=== PATIENT | male | born 1980 | race African-American/Black ===

== ENCOUNTER 2017-09-02 15:55 | Inpatient (IN) | payer SELFPAY ==
[~2017-09-02] VITALS: Ht 182.9 cm; Wt 84.0 kg
[2017-09-02] VITALS (22 sets, daily range): BP systolic 120–160; BP diastolic 72–104; PULSE 119–156; RESP 15–29; TEMP 99.1; O2SAT 100
[2017-09-02] MEDS ORDERED: PROPOFOL 1000 MG/100 ML INJ 100 ML ONE (16:04)
[2017-09-02] MEDS ORDERED: SODIUM CHLOR 0.9% 1000 ML INJ 1,000 ML IV SCH (16:05)
[2017-09-02] MEDS: PROPOFOL 1000 MG/100 ML INJ 100 ML IV PRN (16:05)
[2017-09-02] MEDS ORDERED: SUCCINYLCHOLINE CHLORIDE 100 MG/5 ML SYRINGE IV PUSH ONE (16:15)
[2017-09-02] MEDS ORDERED: SODIUM CHLORIDE 0.9% FLUSH 10 ML FLUSH IV FLUSH PRN (16:15)
[2017-09-02] MEDS ORDERED: ETOMIDATE 20 MG/10 ML VIAL IV PUSH ONE (16:15)
[2017-09-02 16:40] LABS: AUTOMATED NEUTROPHIL # 3.4 TH/MM3 (1.8-7.7); BASOPHIL % 0.6 % (0.0-2.0); EOSINOPHIL % 0.4 % (0.0-4.0); HEMATOCRIT 36.5 % (39.0-51.0); HEMOGLOBIN 12.3 GM/DL (13.0-17.0); LYMPH % 41.9 % (9.0-44.0); LYMPHOCYTE # 2.8 TH/MM3 (1.0-4.8); MEAN CELL VOLUME 85.2 FL (80.0-100.0); MEAN CORPUSCULAR HEMOGLOBIN 28.7 PG (27.0-34.0); MEAN CORPUSCULAR HGB CONC 33.7 % (32.0-36.0); MEAN PLATELET VOLUME 7.3 FL (7.0-11.0); MONO % 5.4 % (0.0-8.0); MONOCYTE # 0.4 TH/MM3 (0-0.9); NEUT % 51.7 % (16.0-70.0); PLATELET COUNT 252 TH/MM3 (150-450); RED BLOOD COUNT 4.28 MIL/MM3 (4.50-5.90); WHITE BLOOD COUNT 6.6 TH/MM3 (4.0-11.0)
--- NOTE | 2017-09-02 16:41 | RADRPT ---
EXAM DATE/TIME: 09/02/2017 16:13 [facility] COMPARISON: No previous studies available for comparison. INDICATIONS : Evaluate ET tube placement. MEDICAL HISTORY : Unobtainable SURGICAL HISTORY : Unobtainable ENCOUNTER: Initial ACUITY: 1 day PAIN SCORE: Non-responsive. LOCATION: Bilateral chest FINDINGS: A single view of the chest demonstrates the lungs to be symmetrically aerated without evidence of mas s, infiltrate or effusion. The cardiomediastinal contours are unremarkable. Osseous structures are intact. ET tube tip well above the ale. Gastric tube tip and side-port project within the stomach. CONCLUSION: 1. ET tube in good position. 2. The lungs are clear. Ruben Caraballo MD on September 02, 2017 at 16:39 Board Certified Radiologist. This report was verified electronically.
[2017-09-02 16:55] LABS: INTERNATIONAL NORMALIZED RATIO 1.1 RATIO
[2017-09-02 16:56] LABS: BILIRUBIN, URINE NEG (NEG); BLOOD, URINE NEG (NEG); GLUCOSE,URINE NEG (NEG); HYALINE CAST, URINE 1 /lpf (RARE); KETONE, URINE NEG (NEG); MUCUS URINE FEW /lpf (OCC); NITRITE,URINE NEG (NEG); PH, URINE 5.5 (5.0-8.5); URINE COLOR YELLOW (YELLW/STRAW); URINE LEUKOCYTE ESTERASE NEG (NEG)
--- NOTE | 2017-09-02 17:07 | RADRPT ---
EXAM DATE/TIME: 09/02/2017 16:28 [facility] COMPARISON: No previous studies available for comparison. INDICATIONS : Altered mental status. Unresponsive. RADIATION DOSE: 56.35 CTDIvol (mGy) MEDICAL HISTORY : Non-responsive. SURGICAL HISTORY : Non-responsive. ENCOUNTER: Initial ACUITY: 1 day PAIN SCALE: Non-responsive LOCATION: cranial TECHNIQUE: Multiple contiguous axial images were obtained of the head. Using automated exposure control and adj ustment of the mA and/or kV according to patient size, radiation dose was kept as low as reasonably a chievable to obtain optimal diagnostic quality images. DICOM format image data is available electro nically for review and comparison. FINDINGS: CEREBRUM: The ventricles are normal for age. No evidence of midline shift, mass lesion, hemorrhage or acute in farction. No extra-axial fluid collections are seen. POSTERIOR FOSSA: The cerebellum and brainstem are intact. The 4th ventricle is midline. The cerebellopontine angle i s unremarkable. EXTRACRANIAL: The visualized portion of the orbits is intact. SKULL: The calvaria is intact. No evidence of skull fracture. CONCLUSION: Normal examination. Samson Cabral MD on September 02, 2017 at 17:05 Board Certified Radiologist. This report was verified electronically.
[2017-09-02 17:12] LABS: ACETAMINOPHEN LESS THAN 2.0 MCG/ML (10.0-30.0); ALBUMIN 4.2 GM/DL (3.4-5.0); ALKALINE PHOSPHATASE 69 U/L (45-117); ALT (GPT) 73 U/L (12-78); AST (GOT) 45 U/L (15-37); BICARBONATE 27.7 MEQ/L (21.0-32.0); BLOOD UREA NITROGEN 10 MG/DL (7-18); CALCIUM 8.5 MG/DL (8.5-10.1); CHLORIDE 106 MEQ/L (98-107); CREATININE 1.03 MG/DL (0.60-1.30); GLOMERULAR FILTRATION RATE 100 ML/MIN (>89); GLUCOSE,RANDOM 116 MG/DL (74-106); SODIUM (NA) 140 MEQ/L (136-145); TOTAL BILIRUBIN ADULT 0.5 MG/DL (0.2-1.0); TOTAL PROTEIN 7.5 GM/DL (6.4-8.2); TROPONIN I LESS THAN 0.02 NG/ML (0.02-0.05)
--- NOTE | 2017-09-02 17:35 | PD ---
HPI Chief Complaint: Altered Mental Status Time Seen by Provider: 16:05 Travel History International Travel<30 days: No Contact w/Intl Traveler<30days: No Traveled to known affect area: No History of Present Illness HPI 37-year-old male came to the emergency room with history of syncopal episode while he was in the [facility] standing in line and suddenly collapsed. He was witnessed by the other bystanders in the [facility]. 911 was called. When EMS arrived they noticed that he was having agonal respirations. They also noticed that patient has pinpoint pupils and they tried getting IV 2 mg of Narcan which did not reverse his condition. At this point given his GCS of 3 they tried to intubate him but were unsuccessful. They brought him in getting positive pressure ventilation via BVM. Patient was tachycardic upon arrival. Continued to have a GCS of 3. Blood pressure was stable. No family member or friend to give any further history. No medical history is known about this patient. [facility] Past Medical History Narrative Medical List of his past medical, surgical, social and family history is reviewed from the nursing note. Medical History: Unable to Obtain Tetanus Vaccination: Unknown Past Surgical History Surgical History: Unable to Obtain Social History Tobacco Use: Yes Allergies-Medications (Allergen,Severity, Reaction): Coded Allergies: No Allergy Information Available (Unverified , 09/02/17) Comments No known drug allergies. Reported Meds & Prescriptions Reported Meds & Active Scripts Active Active Prescriptions or Reported Medications Unobtainable Narrative Medication List of his home medications reviewed from the nursing note. Review of Systems ROS Limitations: Unresponsive Except as stated in HPI: all other systems reviewed are Neg Physical Exam Narrative GENERAL: Unresponsive, assisted ventilation via BVM SKIN: Focused skin assessment warm/dry. HEAD: Atraumatic. Normocephalic. EYES: Pupils equal and round. Pinpoint bilaterally. No scleral icterus. No injection or drainage. ENT: No nasal bleeding or discharge. Mucous membranes pink and moist. NECK: Trachea midline. No JVD. CARDIOVASCULAR: Regular rate and rhythm. Tachycardia. No murmur appreciated. RESPIRATORY: No accessory muscle use. Clear to auscultation. Breath sounds equal bilaterally. GASTROINTESTINAL: Abdomen soft, non-tender, nondistended. Hepatic and splenic margins not palpable. MUSCULOSKELETAL: No obvious deformities. No clubbing. No cyanosis. No edema. NEUROLOGICAL: GCS of 3 PSYCHIATRIC: Unable to assess Data Data Last Documented VS Vital Signs Date Time Temp Pulse Resp B/P (MAP) Pulse Ox O2 Delivery O2 Flow Rate FiO2 09/02/17 17:30 124 16 131/72 (91) 100 100 09/02/17 17:00 99.1 09/02/17 16:01 Ventilator Orders Orders Propofol 1000 Mg/100 Ml Inj (Diprivan 10 (09/02/17 16:04) Electrocardiogram (09/02/17 16:05) Ammonia (09/02/17 16:05) Complete Blood Count With Diff (09/02/17 16:05) Comprehensive Metabolic Panel (09/02/17 16:05) Creatine Kinase (Cpk) (09/02/17 16:05) Prothrombin Time / Inr (Pt) (09/02/17 16:05) Troponin I (09/02/17 16:05) Thyroid Stimulating Hormone (09/02/17 16:05) Urinalysis - C+S If Indicated (09/02/17 16:05) Lactic Acid Sepsis Protocol (09/02/17 16:05) Arterial Blood Gas (Abg) (09/02/17 16:05) Blood Culture (09/02/17 16:05) Chest, Single Ap (09/02/17 16:05) Ct Brain W/O Iv Contrast(Rout) (09/02/17 16:05) Blood Glucose (09/02/17 16:05) Ecg Monitoring (09/02/17 16:05) Iv Access Insert/Monitor (09/02/17 16:05) Oximetry (09/02/17 16:05) Sodium Chloride 0.9% Flush (Ns Flush) (09/02/17 16:15) Sodium Chlor 0.9% 1000 Ml Inj (Ns 1000 M (09/02/17 16:05) Drug Screen, Random Urine (09/02/17 16:05) Alcohol (Ethanol) (09/02/17 16:05) Tylenol (Acetaminophen) (09/02/17 16:05) Salicylates (Aspirin) (09/02/17 16:05) Succinylcholine Inj (Quelicin Inj) (09/02/17 16:15) Etomidate Inj (Amidate Inj) (09/02/17 16:15) Urinary Catheter Insert/Apply (09/02/17 16:05) ^ Orogastric Tube (09/02/17 16:05) Propofol 1000 Mg/100 Ml Inj (Diprivan 10 (09/02/17 16:15) Neurological Rass Scale SKYLAR.Q2H (09/02/17 16:09) CKMB (09/02/17 16:03) CKMB% (09/02/17 16:03) Admit Order (Ed Use Only) (09/02/17 17:35) Labs Laboratory Tests Test 09/02/17 16:03 09/02/17 16:15 White Blood Count 6.6 TH/MM3 Red Blood Count 4.28 MIL/MM3 Hemoglobin 12.3 GM/DL Hematocrit 36.5 % Mean Corpuscular Volume 85.2 FL Mean Corpuscular Hemoglobin 28.7 PG Mean Corpuscular Hemoglobin Concent 33.7 % Red Cell Distribution Width 15.0 % Platelet Count 252 TH/MM3 Mean Platelet Volume 7.3 FL Neutrophils (%) (Auto) 51.7 % Lymphocytes (%) (Auto) 41.9 % Monocytes (%) (Auto) 5.4 % Eosinophils (%) (Auto) 0.4 % Basophils (%) (Auto) 0.6 % Neutrophils # (Auto) 3.4 TH/MM3 Lymphocytes # (Auto) 2.8 TH/MM3 Monocytes # (Auto) 0.4 TH/MM3 Eosinophils # (Auto) 0.0 TH/MM3 Basophils # (Auto) 0.0 TH/MM3 CBC Comment DIFF FINAL Differential Comment Prothrombin Time 11.0 SEC Prothromb Time International Ratio 1.1 RATIO Urine Color YELLOW Urine Turbidity CLEAR Urine pH 5.5 Urine Specific [place] 1.013 Urine Protein NEG mg/dL Urine Glucose (UA) NEG mg/dL Urine Ketones NEG mg/dL Urine Occult Blood NEG Urine Nitrite NEG Urine Bilirubin NEG Urine Urobilinogen LESS THAN 2.0 MG/DL Urine Leukocyte Esterase NEG Urine Hyaline Casts 1 /lpf Urine Granular Casts 14 /lpf Urine Mucus FEW /lpf Microscopic Urinalysis Comment CULT NOT INDICATED Blood Urea Nitrogen 10 MG/DL Creatinine 1.03 MG/DL Random Glucose 116 MG/DL Total Protein 7.5 GM/DL Albumin 4.2 GM/DL Calcium Level 8.5 MG/DL Alkaline Phosphatase 69 U/L Aspartate Amino Transf (AST/SGOT) 45 U/L Alanine Aminotransferase (ALT/SGPT) 73 U/L Total Bilirubin 0.5 MG/DL Sodium Level 140 MEQ/L Potassium Level 4.0 MEQ/L Chloride Level 106 MEQ/L Carbon Dioxide Level 27.7 MEQ/L Anion Gap 6 MEQ/L Estimat Glomerular Filtration Rate 100 ML/MIN Total Creatine Kinase 520 U/L Creatine Kinase MB 4.1 NG/ML Creatine Kinase MB % 0.8 % Troponin I LESS THAN 0.02 NG/ML Thyroid Stimulating Hormone 3rd Gen 2.120 uIU/ML Salicylates Level LESS THAN 1.7 MG/DL Urine Opiates Screen NEG Acetaminophen Level LESS THAN 2.0 MCG/ML Urine Barbiturates Screen NEG Urine Amphetamines Screen NEG Urine Benzodiazepines Screen NEG Urine Cocaine Screen NEG Urine Cannabinoids Screen NEG Ethyl Alcohol Level LESS THAN 3 MG/DL Lactic Acid Level 1.6 mmol/L Ammonia 24 MCMOL/L MDM Medical Decision Making Medical Screen Exam Complete: Yes Emergency Medical Condition: Yes Medical Record Reviewed: Yes Interpretation(s) Twelve-lead EKG was reviewed by me. Normal sinus rhythm, left axis deviation, tachycardia, nonspecific ST-T wave changes. Heart rate of 150 bpm. Differential Diagnosis Intracranial bleed, substance overdose, metabolic encephalopathy Narrative Course 5:29 PM patient was intubated given his initial state of arrival and no response to Narcan as per EMS. He was intubated by me successfully. Please refer to my procedure note. He was started on propofol drip. Tube was confirmed by a chest x-ray. Head CT is negative. His urine drug screen is negative for any illicit drugs. At this point the cause of his unresponsive state is unknown. Patient continues to remain tachycardic although heart rate has come down to the 120s. He'll be admitted to the intensive care unit. I just discussed the case with the c unix developer Dr. Kilgore. Critical Care Narrative Aggregate critical care time was 60 minutes. Time to perform other separately billable procedures was not included in the critical care time. My time did not include minutes spent treating any other patients simultaneously or on activities that did not directly contribute to the patient's treatment. The services I provided to this patient were to treat and/or prevent clinically significant deterioration that could result in: Unresponsive, respiratory failure, ventilator management, sedation I provided critical care services requiring my management, as noted below: Chart data review, documentation time, medication orders and management, vital sign assessments/reviewing monitor data, ordering and reviewing lab tests, ordering and interpreting/reviewing x-rays and diagnostic studies, care of the patient and discussion of the patient with the admitting physicians. Procedures Procedure Narrative After the risks and benefits were discussed the following procedure was performed: INTUBATION: The patient was put in optimal position for the procedure. Rapid sequence intubation was initiated by me using 20 milligrams of etomidate IV and 100 milligrams of succinylcholine IV. The patient was intubated with a 8.0 cuffed endotracheal tube. Tube placement was confirmed by visualization of the tube and balloon passing through the cords, capnometry and subsequent chest x-ray. Breath sounds were equal and well aerated bilaterally postintubation. No breath sounds over stomach. Patient tolerated procedure well. EKG Prior to Arrival: No Physician Communication Physician Communication Dr. Kilgore Diagnosis Primary Impression: Unresponsive Additional Impression: Respiratory failure Qualified Codes: J96.00 - Acute respiratory failure, unspecified whether with hypoxia or hypercapnia Admitting Information Admitting Physician Requests: Admit Scripts Unable to Obtain Active Prescriptions or Reported Meds Melecio Webber MD Sep 02, 2017 17:35
[2017-09-02] MEDS ORDERED: IOHEXOL 350 MG/ML 10 ML VIAL (for RAD DIAG) IVCONTRAST ONE (17:53)
[2017-09-02] MEDS ORDERED: MAGNESIUM OXIDE 400 MG TAB PO PRN (18:30)
[2017-09-02] MEDS ORDERED: MAGNESIUM HYDROXIDE SUSP 30 ML CUP PO PRN (18:30)
[2017-09-02] MEDS ORDERED: CHLORHEXIDINE GLUCONATE 2 % 1 PACK (2 CLOTHS) TOP PRN (18:30)
[2017-09-02] MEDS ORDERED: MAGNESIUM SULFATE INJ 2 GM in SODIUM CHLORIDE 0.9% INJ 96 ML IV PRN (18:30)
[2017-09-02] MEDS ORDERED: SODIUM PHOSPHATE INJ 30 MMOL in SODIUM CHLOR 0.9% 250 ML INJ 240 ML IV PRN (18:30)
[2017-09-02] MEDS ORDERED: POTASSIUM PHOSPHATE MONOBASIC 500 MG TAB PO/TUBE PRN (18:30)
[2017-09-02] MEDS ORDERED: MISCELLANEOUS NURSING INFORMATION XX SCH (18:30)
[2017-09-02] MEDS ORDERED: POTASSIUM CHLOR 20 MEQ PREMIX 100 ML IV PRN ×2 (18:30)
[2017-09-02] MEDS ORDERED: RESP: ALBUTEROL 2.5 MG/IPRATROPIUM 0.5 MG NEB (PRN) INH (18:30)
[2017-09-02] MEDS ORDERED: MAGNESIUM SULFATE INJ 4 GM in SODIUM CHLORIDE 0.9% INJ 92 ML IV PRN (18:30)
[2017-09-02] MEDS ORDERED: POTASSIUM PHOSPHATE MONOBASIC 500 MG TAB PO PRN (18:30)
[2017-09-02] MEDS ORDERED: ONDANSETRON HCL 4 MG/2 ML VIAL IV PUSH PRN (18:30)
[2017-09-02] MEDS ORDERED: POTASSIUM PHOSPHATE INJ 30 MMOL in SODIUM CHLOR 0.9% 250 ML INJ 250 ML IV PRN (18:30)
[2017-09-02] MEDS ORDERED: DEXTROSE 50% IN WATER 50 ML VIAL(D50) IV PUSH PRN (18:30)
[2017-09-02] MEDS ORDERED: POTASSIUM CHLOR 40 MEQ PREMIX 100 ML IV PRN ×2 (18:30)
[2017-09-02] MEDS ORDERED: POTASSIUM CHLORIDE 25 MEQ EFFERVESCENT TAB PO PRN (18:30)
--- NOTE | 2017-09-02 18:53 | RADRPT ---
EXAM DATE/TIME: 09/02/2017 17:53 [facility] COMPARISON: No previous studies available for comparison. INDICATIONS : Syncope; rule out thrombosis. IV CONTRAST: 75 cc Omnipaque 350 (iohexol) IV ; Cumulative dose for multiple exams. RADIATION DOSE: 15.36 CTDIvol (mGy) ; Combined studies MEDICAL HISTORY : Non-responsive. SURGICAL HISTORY : Non-responsive. ENCOUNTER: Initial ACUITY: 1 day PAIN SCALE: Non-responsive LOCATION: neck Elevated flow velocities and ICA/CCA ratios have been found to correlate with increased degrees of vessel stenosis, calculated as percentage of diameter relative to a normal segment of distal ICA/CCA. TECHNIQUE: Volumetric scanning was performed using a multirow detector CT scanner. The data was post processed with a variety of visualization algorithms including full-volume maximum intensity projection, multip lanar sliding thin-slab reformation, curved-planar reformation, and surface-rendering techniques. Us ing automated exposure control and adjustment of the mA and/or kV according to patient size, radiatio n dose was kept as low as reasonably achievable to obtain optimal diagnostic quality images. DICOM f ormat image data is available electronically for review and comparison. FINDINGS: AORTIC ARCH: There is a bovine-type origin of the great vessels from the aorta. No evidence of ostial narrowing. RIGHT CAROTID: The common carotid artery is intact. The carotid bulb has a normal configuration without ulceration o r narrowing. The internal carotid artery lumen is smooth without stenosis. The external carotid gabo ry is intact. LEFT CAROTID: The common carotid artery is intact. The carotid bulb has a normal configuration without ulceration or narrowing. The internal carotid artery lumen is smooth without stenosis. The external carotid ar lai is intact. VERTEBRALS: The vertebral arteries have a symmetric diameter. No stenotic lesions are seen. CONCLUSION: Unremarkable exam. Jayesh Kilgore MD on September 02, 2017 at 18:49 Board Certified Radiologist. This report was verified electronically.
--- NOTE | 2017-09-02 18:56 | RADRPT ---
EXAM DATE/TIME: 09/02/2017 17:53 [facility] COMPARISON: No previous studies available for comparison. INDICATIONS : Syncope; rule out thrombosis. IV CONTRAST: 75 cc Omnipaque 350 (iohexol) IV ; Cumulative dose for multiple exams. RADIATION DOSE: 15.36 CTDIvol (mGy) ; Combined studies MEDICAL HISTORY : Non-responsive. SURGICAL HISTORY : Non-responsive. ENCOUNTER: Initial ACUITY: 1 day PAIN SCALE: Non-responsive LOCATION: cranial TECHNIQUE: Volumetric scanning was performed using a multi-row detector CT scanner. The data was post processed with a variety of visualization algorithms including full volume maximum intensity projection, multi -planar sliding thin slab reformation, curved planar reformation, and surface rendering techniques. Using automated exposure control and adjustment of the mA and/or kV according to patient size, radiat ion dose was kept as low as reasonably achievable to obtain optimal diagnostic quality images. DICO M format image data is available electronically for review and comparison. FINDINGS: There is excellent visualization of the major intracranial arteries out to the second-order branch ve ssels. There is no evidence for aneurysm, vessel truncation or stenosis, and no evidence for vascula r malformation. The vertebral arteries and basilar artery are small in size. CONCLUSION: Negative exam. There is no focal stenosis or aneurysm. Jayesh Kilgore MD on September 02, 2017 at 18:51 Board Certified Radiologist. This report was verified electronically.
[2017-09-02] MEDS: SODIUM CHLOR 0.9% 1000 ML INJ 1,000 ML IV SCH (19:03)
--- NOTE | 2017-09-02 20:22 | RADRPT ---
EXAM DATE/TIME: 09/02/2017 19:54 [facility] COMPARISON: CT BRAIN W/O CONTRAST, September 02, 2017, 16:28. INDICATIONS : Unresponsive. MEDICAL HISTORY : None. SURGICAL HISTORY : None. ENCOUNTER: Initial ACUITY: 1 day PAIN SCORE: 0/10 LOCATION: cranial TECHNIQUE: Multiplanar, multisequence MRI of the brain was performed without contrast. FINDINGS: CEREBRUM: The ventricles are normal for age. No evidence of midline shift, mass lesion, hemorrhage or acute in farction. No extraaxial fluid collections are seen. The pituitary gland and suprasellar cistern are normal in configuration. WHITE MATTER: No significant signal abnormalities are seen in the white matter. POSTERIOR FOSSA: The cerebellum and brainstem are intact. The 4th ventricle is midline. The cerebellopontine angle is unremarkable. The cerebellar tonsils are normal in position. DIFFUSION IMAGING: No focal areas of restricted diffusion are seen. No evidence of acute infarction. EXTRACRANIAL: The visualized portions of the orbits and paranasal sinuses are unremarkable. CONCLUSION: Unremarkable noncontrast MRI of the brain. Jayesh Kilgore MD on September 02, 2017 at 20:19 Board Certified Radiologist. This report was verified electronically.
[2017-09-02] MEDS: DOCUSATE SODIUM 50 MG/SENNA 8.6 MG TAB PO SCH (20:49)
[2017-09-02] MEDS: HEPARIN SODIUM - SQ 10,000 UNITS/ML VIAL SQ SCH (20:49)
--- NOTE | 2017-09-02 20:49 | HHI.HP ---
HPI Service Critical Care Medicine Primary Care Physician Unknown Admission Diagnosis unresponsive, respiratory failure Diagnosis: Travel History International Travel<30 Days: No Contact w/Intl Traveler <30 Da: No Traveled to Known Affected Are: No History of Present Illness 37-year-old male was brought to the emergency room with history of syncopal episode while he was in the [facility] standing in line and suddenly collapsed. He was witnessed by the other bystanders in the bank. 911 was called. When EMS arrived they noticed that he was having agonal respirations. They also noticed that patient has pinpoint pupils and they tried getting IV 2 mg of Narcan which did not reverse his condition. At this point given his GCS of 3 they tried to intubate him but were unsuccessful. They brought him in getting positive pressure ventilation via BVM. Patient was tachycardic upon arrival. Continued to have a GCS of 3. The patient was intubated by ED attending for an airway protection. Blood pressure was stable. Per ED nursing staff report the patient has a mother who didn't talk to him for 2 years however she admits he has a history of bipolar disorder. Review of Systems ROS Unobtainable patient is sedated and intubated Past Family Social History Allergies: Coded Allergies: No Allergy Information Available (Unverified , 09/02/17) Past Medical History Bipolar disorder The rest is unable to obtain due to, and intubation Past Surgical History Unobtainable Reported Medications Reported Meds & Active Scripts Active Active Prescriptions or Reported Medications Unobtainable Active Ordered Medications Current Medications Medications (Trade) Dose Ordered Sig/Leroy Route PRN Reason Start Time Stop Time Status Last Admin Dose Admin Sodium Chloride (NS Flush) 2 ml UNSCH PRN IV FLUSH FLUSH AFTER USING IV ACCESS 09/02/17 16:15 Propofol 100 ml @ 2.7 mls/hr TITRATE PRN IV Ordered RASS 09/02/17 16:15 09/02/17 16:05 Potassium Chloride 100 ml @ 50 mls/hr Q2H PRN IV For Potassium 2.8 - 3.2 mEq/L 09/02/17 18:30 Potassium Chloride 100 ml @ 50 mls/hr Q2H PRN IV For Potassium 2.8 - 3.2 mEq/L 09/02/17 18:30 Potassium Bicarb/ Potassium Chloride (K-Lyte Cl Eff) 50 meq UNSCH PRN PO For Potassium 3.3 - 3.5 mEq/L 09/02/17 18:30 Potassium Chloride 100 ml @ 25 mls/hr UNSCH PRN IV For Potassium 3.3 - 3.5 mEq/L 09/02/17 18:30 Potassium Chloride 100 ml @ 50 mls/hr Q2H PRN IV For Potassium 3.3 - 3.5 mEq/L 09/02/17 18:30 Magnesium Sulfate 4 gm/Sodium Chloride 100 ml @ 50 mls/hr UNSCH PRN IV For Magnesium 0.9 - 1.1 mg/dL 09/02/17 18:30 Magnesium Oxide (Mag-Ox) 800 mg UNSCH PRN PO For Magnesium 1.2 - 1.6 mg/dL 09/02/17 18:30 Magnesium Sulfate 2 gm/Sodium Chloride 100 ml @ 50 mls/hr UNSCH PRN IV For Magnesium 1.2 - 1.6 mg/dL 09/02/17 18:30 Potassium Phosphate (K-Phos) 2,000 mg Q4H PRN PO For Phosphorus < 2.5 mg/dL 09/02/17 18:30 Sodium Phosphate 30 mmol/Sodium Chloride 250 ml @ 42 mls/hr UNSCH PRN IV For Phosphorus < 2.5 mg/dL 09/02/17 18:30 Potassium Phosphate (K-Phos) 2,000 mg UNSCH PRN PO/TUBE SEE LABEL COMMENTS 09/02/17 18:30 Potassium Phosphate 30 mmol/ Sodium Chloride 260 ml @ 42 mls/hr UNSCH PRN IV SEE LABEL COMMENTS 09/02/17 18:30 Chlorhexidine Gluconate (Peridex 0.12% Liq) 15 ml BID@08,20 MT 09/02/17 20:00 09/02/17 20:52 Dextrose (D50w (Vial) Inj) 25 ml UNSCH PRN IV PUSH HYPOGLYCEMIA-SEE COMMENTS 09/02/17 18:30 Insulin Human Regular (NovoLIN R SUPPLEMENTAL SCALE) 1 Q6HR SQ 09/03/17 00:00 Albuterol/ Ipratropium (Duoneb Neb) 1 ampule Q6HR NEB INH 09/02/17 22:00 Albuterol/ Ipratropium (Duoneb Neb) 1 ampule Q2HR NEB PRN INH WHEEZING 09/02/17 18:30 Sodium Chloride 1,000 ml @ 84 mls/hr [id number] IV 09/02/17 18:30 09/02/17 19:03 Ondansetron HCl (Zofran Inj) 4 mg Q6H PRN IV PUSH NAUSEA OR VOMITING 09/02/17 18:30 Heparin Sodium (Porcine) (Heparin Inj) 5,000 units Q8H SQ 09/02/17 20:00 09/02/17 20:49 Miscellaneous Information 1 [id number] XX 09/02/17 18:30 Chlorhexidine Gluconate (Chlorhexidine 2% Cloth) 3 pack Taper DAILY@04 TOP 09/03/17 04:00 08/30/18 03:59 09/02/17 20:49 Chlorhexidine Gluconate (Chlorhexidine 2% Cloth) 3 pack UNSCH PRN TOP HYGIENIC CARE 09/02/17 18:30 Senna/Docusate Sodium (Gina-Colace) 1 tab BID PO 09/02/17 21:00 09/02/17 20:49 Magnesium Hydroxide (Milk Of Calvin Liq) 30 ml Q12H PRN PO Mild constipation 09/02/17 18:30 Family History Unobtainable Social History Unobtainable Physical Exam Vital Signs Vital Signs Date Time Temp Pulse Resp B/P (MAP) Pulse Ox O2 Delivery O2 Flow Rate FiO2 09/02/17 20:23 99.1 119 29 130/84 (99) 09/02/17 19:04 123 15 127/74 (91) 100 Ventilator 09/02/17 18:30 126 16 120/75 (90) 100 100 09/02/17 18:19 100 50 09/02/17 18:00 100 100 09/02/17 18:00 120 16 138/80 (99) 100 100 09/02/17 17:30 124 16 131/72 (91) 100 100 09/02/17 17:15 122 16 145/97 (113) 100 09/02/17 17:00 99.1 124 16 140/83 (102) 100 100 09/02/17 16:45 141 160/104 (122) 09/02/17 16:30 149/89 (109) 09/02/17 16:15 156 23 153/94 (113) 100 100 09/02/17 16:14 16 100 09/02/17 16:01 100 100 09/02/17 16:01 100 Ventilator 100 09/02/17 16:00 152 16 153/100 (117) 100 100 09/02/17 15:58 150 153/100 (117) Physical Exam GENERAL: Unresponsive, intubated SKIN: Focused skin assessment warm/dry. HEAD: Atraumatic. Normocephalic. EYES: Pupils equal and round. Pinpoint bilaterally. No scleral icterus. No injection or drainage. ENT: No nasal bleeding or discharge. Mucous membranes pink and moist. NECK: Trachea midline. No JVD. CARDIOVASCULAR: Regular rate and rhythm. Tachycardia. No murmur appreciated. RESPIRATORY: No accessory muscle use. Clear to auscultation. Breath sounds equal bilaterally. GASTROINTESTINAL: Abdomen soft, non-tender, nondistended. Hepatic and splenic margins not palpable. MUSCULOSKELETAL: No obvious deformities. No clubbing. No cyanosis. No edema. NEUROLOGICAL: GCS of 3 Laboratory Laboratory Tests Test 09/02/17 16:03 09/02/17 16:15 09/02/17 18:55 White Blood Count 6.6 Red Blood Count 4.28 Hemoglobin 12.3 Hematocrit 36.5 Mean Corpuscular Volume 85.2 Mean Corpuscular Hemoglobin 28.7 Mean Corpuscular Hemoglobin Concent 33.7 Red Cell Distribution Width 15.0 Platelet Count 252 Mean Platelet Volume 7.3 Neutrophils (%) (Auto) 51.7 Lymphocytes (%) (Auto) 41.9 Monocytes (%) (Auto) 5.4 Eosinophils (%) (Auto) 0.4 Basophils (%) (Auto) 0.6 Neutrophils # (Auto) 3.4 Lymphocytes # (Auto) 2.8 Monocytes # (Auto) 0.4 Eosinophils # (Auto) 0.0 Basophils # (Auto) 0.0 CBC Comment DIFF FINAL Differential Comment Prothrombin Time 11.0 Prothromb Time International Ratio 1.1 Urine Color YELLOW Urine Turbidity CLEAR Urine pH 5.5 Urine Specific Amelia 1.013 Urine Protein NEG Urine Glucose (UA) NEG Urine Ketones NEG Urine Occult Blood NEG Urine Nitrite NEG Urine Bilirubin NEG Urine Urobilinogen LESS THAN 2.0 Urine Leukocyte Esterase NEG Urine Hyaline Casts 1 Urine Granular Casts 14 Urine Mucus FEW Microscopic Urinalysis Comment CULT NOT INDICATED Blood Urea Nitrogen 10 Creatinine 1.03 Random Glucose 116 Total Protein 7.5 Albumin 4.2 Calcium Level 8.5 Alkaline Phosphatase 69 Aspartate Amino Transf (AST/SGOT) 45 Alanine Aminotransferase (ALT/SGPT) 73 Total Bilirubin 0.5 Sodium Level 140 Potassium Level 4.0 Chloride Level 106 Carbon Dioxide Level 27.7 Anion Gap 6 Estimat Glomerular Filtration Rate 100 Total Creatine Kinase 520 Creatine Kinase MB 4.1 Creatine Kinase MB % 0.8 Troponin I LESS THAN 0.02 Thyroid Stimulating Hormone 3rd Gen 2.120 Salicylates Level LESS THAN 1.7 Urine Opiates Screen NEG Acetaminophen Level LESS THAN 2.0 Urine Barbiturates Screen NEG Urine Amphetamines Screen NEG Urine Benzodiazepines Screen NEG Urine Cocaine Screen NEG Urine Cannabinoids Screen NEG Ethyl Alcohol Level LESS THAN 3 Lactic Acid Level 1.6 Ammonia 24 Blood Gas Puncture Site RT RADIAL Blood Gas Patient Temperature 98.6 Blood Gas HCO3 26 Blood Gas Base Excess 1.9 Blood Gas Oxygen Saturation 89 Arterial Blood pH 7.41 Arterial Blood Partial Pressure CO2 42 Arterial Blood Partial Pressure O2 60 Arterial Blood Oxygen Content 14.3 Arterial Blood Carboxyhemoglobin 1.6 Arterial Blood Methemoglobin 0.9 Blood Gas Hemoglobin 11.4 Oxygen Delivery Device VENTILATOR Blood Gas Ventilator Setting 500/15/+5 Blood Gas Inspired Oxygen 40 Date/Time Source Procedure Growth Status 09/02/17 16:20 Blood Peripheral Aerobic Blood Culture Pending Received 09/02/17 16:20 Blood Peripheral Anaerobic Blood Culture Pending Received Result Diagram: 09/02/17 1603 09/02/17 1603 Imaging Last 24 hours Impressions Neck CTA 09/02/17 1741 Signed Impressions: Service Date/Time: Saturday, September 02, 2017 17:53 - CONCLUSION: Unremarkable exam. Jayesh Kilgore MD Head CTA 09/02/17 1741 Signed Impressions: Service Date/Time: Saturday, September 02, 2017 17:53 - CONCLUSION: Negative exam. There is no focal stenosis or aneurysm. Jayesh Kilgore MD Head CT 09/02/17 1605 Signed Impressions: Service Date/Time: Saturday, September 02, 2017 16:28 - CONCLUSION: Normal examination. Samson Cabral MD Chest X-Ray 09/02/17 1605 Signed Impressions: Service Date/Time: Saturday, September 02, 2017 16:13 - CONCLUSION: 1. ET tube in good position. 2. The lungs are clear. Ruben Caraballo MD Brain MRI 09/02/17 0000 Signed Impressions: Service Date/Time: Saturday, September 02, 2017 19:54 - CONCLUSION: Unremarkable noncontrast MRI of the brain. Jayesh Kilgore MD Septic Shock Reassessment Septic shock perfusion: reassessment completed Caprini VTE Risk Assessment Caprini VTE Risk Assessment: Mod/High Risk (score >= 2) Caprini Risk Assessment Model Point Value = 1 Point Value = 2 Point Value = 3 Point Value = 5 Age 41-60 Minor surgery BMI > 25 kg/m2 Swollen legs Varicose veins or History of unexplained or recurrent spontaneous Oral contraceptives or hormone replacement Sepsis (< 1 month) Serious lung disease, including pneumonia (< 1 month) Abnormal pulmonary function Acute myocardial infarction Congestive heart failure (< 1 month) History of inflammatory bowel disease Medical patient at bed rest Age 61-74 Arthroscopic surgery Major open surgery (> 45 min) Laparoscopic surgery (> 45 min) Malignancy Confined to bed (> 72 hours) Immobilizing plaster cast Central venous access Age >= 75 History of VTE Family history of VTE Factor V Leiden Prothrombin [id number] Lupus anticoagulant Anticardiolipin antibodies Elevated serum homocysteine Heparin-induced thrombocytopenia Other congenital or acquired thrombophilia Stroke (< 1 month) Elective arthroplasty Hip, pelvis, or leg fracture Acute spinal cord injury (< 1 month) Prophylaxis Regimen Total Risk Factor Score Risk Level Prophylaxis Regimen 0-1 Low Early ambulation 2 Moderate Order ONE of the following: *Sequential Compression Device (SCD) *Heparin 5000 units SQ BID 3-4 Higher Order ONE of the following medications: *Heparin 5000 units SQ TID *Enoxaparin/Lovenox 40 mg SQ daily (WT < 150 kg, CrCl > 30 mL/min) *Enoxaparin/Lovenox 30 mg SQ daily (WT < 150 kg, CrCl > 10-29 mL/min) *Enoxaparin/Lovenox 30 mg SQ BID (WT < 150 kg, CrCl > 30 mL/min) AND/OR *Sequential Compression Device (SCD) 5 or more Highest Order ONE of the following medications: *Heparin 5000 units SQ TID (Preferred with Epidurals) *Enoxaparin/Lovenox 40 mg SQ daily (WT < 150 kg, CrCl > 30 mL/min) *Enoxaparin/Lovenox 30 mg SQ daily (WT < 150 kg, CrCl > 10-29 mL/min) *Enoxaparin/Lovenox 30 mg SQ BID (WT < 150 kg, CrCl > 30 mL/min) AND *Sequential Compression Device (SCD) Assessment and Plan Assessment and Plan Respiratory failure - Intubated for an airway protection - No weaning until neurologically improved - Vent bundle - ACVC - CXR and ABG daily Altered mental status - CT, CTA, MRI negative - Stat EEG pending - Tox screen negative - Neurological consultation Tachycardia - Lopressor IV when necessary to keep heart rate less than 100 Anemia - No indication for blood transfusion - Monitor H&H daily DVT GI prophylaxis - Teds SCDs - Subcutaneous heparin - Pepcid Critical Care: The total critical care time was 35 minutes. Time to perform other separately billable procedures was not included in the critical care time. Percy Jorgensen MD Sep 02, 2017 8:49 pm
[2017-09-02] MEDS: CHLORHEXIDINE 0.12% (ORAL KIT) 15 ML CUP MT SCH (20:52)
[2017-09-02] MEDS: RESP: ALBUTEROL 2.5 MG/IPRATROPIUM 0.5 MG NEB (SCH) INH (21:31)
[2017-09-03] VITALS (21 sets, daily range): BP systolic 96–136; BP diastolic 60–87; PULSE 85–134; RESP 13–27; TEMP 98.1–100.8; O2SAT 96–100
[2017-09-03] MEDS ORDERED: METOPROLOL TARTRATE 5 MG/5 ML VIAL IV PUSH PRN (00:15)
[2017-09-03] MEDS: PROPOFOL 1000 MG/100 ML INJ 100 ML IV PRN (00:23)
[2017-09-03] MEDS: FAMOTIDINE 20 MG/2 ML VIAL IV PUSH SCH ×2 (02:17→12:34)
[2017-09-03] MEDS: HEPARIN SODIUM - SQ 10,000 UNITS/ML VIAL SQ SCH ×3 (02:18→20:51)
[2017-09-03] MEDS ORDERED: CHLORHEXIDINE GLUCONATE 2 % 1 PACK (2 CLOTHS) TOP SCH (04:00)
[2017-09-03 04:13] LABS: HEMOGLOBIN 11.5 GM/DL (13.0-17.0); MEAN CELL VOLUME 83.6 FL (80.0-100.0); MEAN CORPUSCULAR HEMOGLOBIN 29.2 PG (27.0-34.0); MEAN CORPUSCULAR HGB CONC 34.9 % (32.0-36.0); MEAN PLATELET VOLUME 7.7 FL (7.0-11.0); PLATELET COUNT 262 TH/MM3 (150-450); RED BLOOD COUNT 3.95 MIL/MM3 (4.50-5.90); RED CELL DISTRIBUTION WIDTH 15.5 % (11.6-17.2); WHITE BLOOD COUNT 10.2 TH/MM3 (4.0-11.0)
[2017-09-03 04:29] LABS: BICARBONATE 26.5 MEQ/L (21.0-32.0); CALCIUM 8.3 MG/DL (8.5-10.1); CREATININE 0.95 MG/DL (0.60-1.30)
[2017-09-03] MEDS: RESP: ALBUTEROL 2.5 MG/IPRATROPIUM 0.5 MG NEB (SCH) INH ×3 (04:36→15:20)
[2017-09-03] MEDS: INSULIN NovoLIN REGULAR SUPPLEMENTAL SCALE SQ SCH ×4 (06:00→17:08)
[2017-09-03] MEDS: SODIUM CHLOR 0.9% 1000 ML INJ 1,000 ML IV SCH ×3 (06:25→20:51)
[2017-09-03] MEDS: CHLORHEXIDINE 0.12% (ORAL KIT) 15 ML CUP MT SCH ×2 (08:00→20:51)
[2017-09-03] MEDS: DOCUSATE SODIUM 50 MG/SENNA 8.6 MG TAB PO SCH ×2 (09:00→20:51)
--- NOTE | 2017-09-03 09:16 | HHI.CCPN ---
Subjective Remarks/Hospital Course 37-year-old male was brought to the emergency room with history of syncopal episode while he was in the [facility] standing in line and suddenly collapsed. He was witnessed by the other bystanders in the [facility]. 911 was called. When EMS arrived they noticed that he was having agonal respirations. They also noticed that patient has pinpoint pupils and they tried getting IV 2 mg of Narcan which did not reverse his condition. At this point given his GCS of 3 they tried to intubate him but were unsuccessful. They brought him in getting positive pressure ventilation via BVM. Patient was tachycardic upon arrival. Continued to have a GCS of 3. The patient was intubated by ED attending for an airway protection. Blood pressure was stable. Per ED nursing staff report the patient has a mother who didn't talk to him for 2 years however she admits he has a history of bipolar disorder. Subjective: 09/03 CT brain, CTA brain/neck and MRI brain all unremarkable. EEG moderate to severe slowing without epileptiform features. Pupils pinpoint and minimally reactive but remainder of brainstem reflexes are intact. Sits right up in bed and moves all extremities restlessly when off sedation. Did not follow commands Self extubated. Objective Vital Signs Date Time Temp Pulse Resp B/P (MAP) Pulse Ox O2 Delivery O2 Flow Rate FiO2 09/03/17 08:21 99 40 09/03/17 06:00 129 09/03/17 04:00 99.9 22 96/60 (72) 09/02/17 19:04 Ventilator Intake and Output 09/03/17 09/03/17 09/04/17 08:00 16:00 00:00 Intake Total 342 ml Output Total 1150 ml Balance -808 ml Result Diagram: 09/03/17 0344 09/03/17 0344 Other Results Laboratory Tests Test 09/02/17 18:55 Blood Gas Puncture Site RT RADIAL Blood Gas Patient Temperature 98.6 Blood Gas HCO3 26 mmol/L (22-26) Blood Gas Base Excess 1.9 mmol/L (-2-2) Blood Gas Oxygen Saturation 89 % (90-100) Arterial Blood pH 7.41 (7.380-7.420) Arterial Blood Partial Pressure CO2 42 mmHg (38-42) Arterial Blood Partial Pressure O2 60 mmHG (61-120) Arterial Blood Oxygen Content 14.3 Vol % (12.0-20.0) Arterial Blood Carboxyhemoglobin 1.6 % (0-4) Arterial Blood Methemoglobin 0.9 % (0-2) Blood Gas Hemoglobin 11.4 G/DL (12.0-16.0) Oxygen Delivery Device VENTILATOR Blood Gas Ventilator Setting 500/15/+5 Blood Gas Inspired Oxygen 40 % Imaging Last 24 hours Impressions Neck CTA 09/02/17 1741 Signed Impressions: Service Date/Time: Saturday, September 02, 2017 17:53 - CONCLUSION: Unremarkable exam. Jayesh Kilgore MD Head CTA 09/02/17 1741 Signed Impressions: Service Date/Time: Saturday, September 02, 2017 17:53 - CONCLUSION: Negative exam. There is no focal stenosis or aneurysm. Jayesh Kilgore MD Head CT 09/02/17 1605 Signed Impressions: Service Date/Time: Saturday, September 02, 2017 16:28 - CONCLUSION: Normal examination. Samson Cabral MD Chest X-Ray 09/02/17 1605 Signed Impressions: Service Date/Time: Saturday, September 02, 2017 16:13 - CONCLUSION: 1. ET tube in good position. 2. The lungs are clear. Ruben Caraballo MD Brain MRI 09/02/17 0000 Signed Impressions: Service Date/Time: Saturday, September 02, 2017 19:54 - CONCLUSION: Unremarkable noncontrast MRI of the brain. Jayesh Kilgore MD Objective Remarks Drips: 0.9 NaCl at 84 L per hour Propofol 10 g per KG per minute Jevity 1.5 at 40 mL per hour GENERAL: WNWD male who is orotracheally intubated. SKIN: Focused skin assessment warm/dry. HEAD: Atraumatic. Normocephalic. EYES: Pupils equal and round. Pinpoint bilaterally, minimally reactive. No scleral icterus. No injection or drainage. ENT: No nasal bleeding or discharge. Mucous membranes pink and moist. NECK: Trachea midline. No JVD. CARDIOVASCULAR: Tachycardic, sinus tach on the monitor . No murmur appreciated. RESPIRATORY: No accessory muscle use. Clear to auscultation. Breath sounds equal bilaterally. ACV tidal volume 500/rate 15/PEEP 5/FiO2 40% GASTROINTESTINAL: Abdomen soft, non-tender, nondistended. Bowel sounds present. MUSCULOSKELETAL: No obvious deformities. No clubbing. No cyanosis. No edema. NEUROLOGICAL: No eye opening. Moves all extremities restlessly. Does not follow commands. A/P Assessment and Plan NEURO: ?Syncope Altered mental status Bipolar disorder - CT, CTA, MRI negative - EEG moderate to severe slowing without epileptiform features. - Tox screen negative ?opioid that does not show up on tox screen? methadone? Check methadone level. Unable to reach mother for further info and apparently others who have reached her said that she did not know current medical info as they have not been in touch. - Neurological consultation -Neuro workup unrevealing unless this is tox related. Dysrhythmia would be another consdiration. Cardiac syncope w/u as per below. - H/o Bipolar meds unknown. RESP: Acute respiratory failure Intubated in ED for airway protection Self extubated morning of 09/03. He localizes but does not follow commands. Airway was suctioned and he has gag reflex. He did not tolerate insertion of nasal trumpet still appears to be protecting his airway adequately. We'll continue to monitor and we'll reintubate if needed. DuoNeb every 6 hours. Chest x-ray 09/02 - satisfactory endotracheal tube position. Lungs are clear. CV: Tachycardia - Lopressor IV when necessary to keep heart rate less than 100 - Telemetry monitoring for dysrhythmia, Check Echo. Trend cardiac markers. GI: NPO for now. Tube feeds held. FEN/RENAL: Thomas in place. Monitor intake and output. Monitor electrolytes. Replace like lites as indicated per ICU electrolyte replacement protocol. ID: Low-grade fever 100.8. Chest x-ray Clear. UA negative. Follow-up blood cultures No leukocytosis. Continue to monitor. HEME: Chronic anemia Does not appear to be actively bleeding. Will continue to monitor ENDO: Euglycemic. TSH normal. PROPH: SCDs/Heparin subcutaneous for DVT prophylaxis. Famotidine for stress ulcer prophylaxis. ACCESS: PIV providing adequate access at this time. Called his mother to update and to provide further information. There was no answer. She did not have a voicemail set up. Patient self extubated. I presented emergently to bedside for airway management. Suctioned airway, performed a jaw thrust, discontinued tube feeds, stopped propofol drip, attempted nasal trumpet insertion. He appears to be adequately protecting his airway at this point. Will monitor clinically very closely and reintubate if needed. CCT 35 minutes exclusive of separately billable procedures. Parul Vogt MD Sep 03, 2017 09:16
--- NOTE | 2017-09-03 09:32 | MG ---
cc: GARRET LIMON M.D. Lab No: [id number] Date: 09/03/2017 Age: 37 Sex: M Race: DATE OF : 06/15/1978 37 REFERRING PHYSICIAN Room 519, intubated with Diprivan 10 mcg at the start of EEG and Diprivan turned off 2 minutes into the study with photic stimulation withdraws all four extremities. MRI unremarkable. There was a syncope, collapsed while in line at the bank. Pinpoint pupils, a known history of Lopressor <<0:30>> Current medications. Overall background of recording; significantly slow predominately delta frequency the Diprivan turned off as stated two minutes into the study. Background remains attenuated delta frequency. Deep tactile stimulation was given, some withdrawal of the extremities but overall background is 1-2 Hz. Photic stimulation without any driving response. IMPRESSION Abnormal EEG due to moderately severe slowing consistent with encephalopathic process of various etiology. No epileptiform features. Clinical correlation. MD VITOR Estrada/suni /8:01 AM /9:12 AM
[2017-09-03] MEDS ORDERED: ACETAMINOPHEN 325 MG TAB PO PRN (10:15)
[2017-09-03 10:37] LABS: TROPONIN I LESS THAN 0.02 NG/ML (0.02-0.05)
--- NOTE | 2017-09-03 17:24 | MB ---
cc: GARRET LIMON M.D. DATE OF CONSULTATION: 09/03/17 DATE OF : 1980, AGE 37 REASON FOR CONSULTATION Encephalopathy, change in mental status, status post questionable syncope. HISTORY OF PRESENT ILLNESS This is a 37-year-old man who comes in with EMS. He was apparently at the bank, in line, collapsed, witnessed by bystanders, was called. He was having some agonal respirations, pinpoint pupils, they gave him some Narcan and did not reverse the condition. They tried to intubate him, they were not very successful, brought him in with a positive pressure ventilation, tachycardic upon arrival. The patient was intubated in the ED. There is no significant past medical history obtainable. The patient now self-extubated himself, answering yes and no but very sleepy still. I asked him questions, he does not answer, he follows simple commands. NEUROLOGIC EXAMINATION VITAL SIGNS: Temperature 99.9, heart rate was not rechecked though was 129 this morning, he is a 100% now on nasal cannula. Pupils are reactive. His face is symmetrical. When speaks his speech was normal. He moves everything, looks equal. Does not follow for cerebellar testing. Withdraws to painful stimuli in all four. Gait is withheld. LABORATORY DATA His labs are reviewed and hemoglobin 11.5. Chemistries, CK 360, his TSH 2.120, calcium 8.3. Tox screen was negative for what was checked. Urine unremarkable. IMAGING STUDIES Imaging of the brain: He had MRI done, it was unremarkable. He had a head CTA that was negative. Neck CTA that was negative. EEG showed generalized slowing but that may have been partly due to sedation. IMPRESSION A 37-year-old male status post syncope versus seizure, etiology really unknown. At this point in time, continue to monitor his neuro status. Imaging has been negative. I would not repeat that. Consideration would be to repeat an EEG but also when he is more alert to find out does he have a history of seizures, if not possible workup for cardiac source, dysrhythmia, etc., outpatient Holter. Continue further care. Further recommendations to be made accordingly. MD VITOR Estrada/ELIZABETH /3:05 PM /4:54 PM
--- NOTE | 2017-09-04 14:26 | EKG ---
Date Performed: 09/02/2017 Time Performed: 16:05:37 PTAGE: 37 years EKG: MARKED SINUS TACHYCARDIA LEFT AXIS DEVIATION ABNORMAL RHYTHM ECG NO PREVIOUS TRACING DOCTOR: Lukas Jiménez Interpretating Date/Time 09/04/2017 14:25:39
--- NOTE | 2017-09-04 14:27 | EKG ---
Date Performed: 09/03/2017 Time Performed: 10:20:14 PTAGE: 37 years EKG: SINUS TACHYCARDIA Compared to previous tracing, Left axis deviation is no longer present an d the sinus rate is slower ABNORMAL RHYTHM ECG PREVIOUS TRACING : 09/02/2017 16.05 DOCTOR: Lukas Jiménez Interpretating Date/Time 09/04/2017 14:26:17
== END 2017-09-03 22:20 | disposition left against medical advice (07) | DRG 208 ==
LOC: NEPE 15:55 → NEDA 17:36 → HIMN 20:30
PROVIDERS: ADMIT Internal Medicine Critical Care Medicine; ATTEND Internal Medicine Critical Care Medicine
PROC: 5A1935Z Respiratory Ventilation, Less than 24 Consecutive Hours (ICD-10-PCS; principal; 2017-09-02)
PROC: 0BH17EZ Insertion of Endotracheal Airway into Trachea, Via Natural or Artificial Opening (ICD-10-PCS; 2017-09-02)
DX: J96.00 Acute respiratory failure, unspecified whether with hypoxia or hypercapnia (principal); G93.40 Encephalopathy, unspecified; D64.9 Anemia, unspecified; F31.9 Bipolar disorder, unspecified; R00.0 Tachycardia, unspecified; Z72.0 Tobacco use
CPT/HCPCS: 31500; 36600; 51702; 70450; 70496; 70498; 70551; 71010; 80048; 80053; 80307; 80358; 81001; 82140; 82550; 82552; 82805; 82948; 83605; 83735; 84443; 84484; 85025; 85027; 85610; 86403; 87040; 87077; 87186; 87205; 87641; 93005; 94002; 94003; 94640; 94664; 95819; 96365; G0480; J0330; J1644; J7030; Q9967